=== PATIENT | male | born 1950 | race Caucasian/White ===

== ENCOUNTER 2022-10-03 05:59 | Day surgery (SDC) | payer MEDICARE, SELFPAY ==
[2022-10-03] VITALS (14 sets, daily range): BP systolic 129–186; BP diastolic 68–89; PULSE 64–71; RESP 14–18; TEMP 36.1–36.7; O2SAT 90–99; BMI 36.3
--- NOTE | 2022-10-03 06:21 | SUR.PREOP ---
Patient provided home covid negative results to RN.
[2022-10-03] MEDS: SODIUM CHLORIDE 0.9 % (FLUSH) 10 ML SYRINGE IVF (06:45)
[2022-10-03] MEDS: LACTATED RINGERS 1000 ML 1,000 ML 100 ML IV ×2 (06:45→09:00)
[2022-10-03] MEDS: fentaNYL 100 MCG/2 ML inj IVP (07:15)
[2022-10-03] MEDS: MIDAZOLAM HCL 1 MG/ML inj IVP (07:15)
--- NOTE | 2022-10-03 07:18 | SUR.PREOP ---
TIME?OUT:?0714 PT/Fabienne Bustamante RN/Dharmesh Taveras CRNA?VERIFICATION?OF?SURGICAL?SITE left shoulder,?PROCEDURE,?AND?CONSENT OBTAINED?PRIOR?TO?INVASIVE?PROCEDURE.
[2022-10-03] MEDS: CEFAZOLIN 2 GM in 0.9 % SODIUM CHLORIDE Mini-bag 100 ML IVPB (07:37)
[2022-10-03] MEDS: EPINEPHrine 1 MG in SODIUM CHLORIDE IRRIG SOLUTION 3,000 ML 9003 MG IRRIGATION ×7 (08:02→09:31)
--- NOTE | 2022-10-03 09:55 | P.ORPRC_ITS ---
Procedure Note Date of procedure: 10/03/22 Procedure: PREOPERATIVE DIAGNOSES: 1. Left shoulder rotator cuff tear-full thickness supraspinatus mid tendon tearing 2. Left shoulder AC degenerative joint disease, primary, moderate-severe 3. Left shoulder subacromial impingement syndrome. POSTOPERATIVE DIAGNOSES: 1. Left shoulder rotator cuff tear-full thickness supraspinatus mid tendon tearing 2. Left shoulder AC degenerative joint disease, primary, moderate-severe 3. Left shoulder low-grade partial-thickness long head biceps tendon tearing 4. Left shoulder anterior and superior labral degenerative tearing 5. Left shoulder chondromalacia humeral head anteriorly 6. Left shoulder subacromial impingement syndrome. NAME OF OPERATION: 1. Left shoulder arthroscopic rotator cuff repair (upper border subscapularis and full-thickness supraspinatus) 2. Left shoulder arthroscopic distal clavicle excision 3. Left shoulder arthroscopic extensive glenohumeral debridement 4. Left shoulder arthroscopic bursectomy, subacromial decompression/partial acromioplasty. SURGEON: Juan Jay MD SLP TEACHER: Aleah Carlton PA-C. Of note, a skilled distribution center assistant was critical for this case to aide in patient positioning, suture manipulation, arm positioning, instrument positioning, and closure. ANESTHESIA: General plus preoperative supraclavicular block. EBL: Less than 50 mL IMPLANTS: Arthrex 5.5 mm BioComposite corkscrew suture anchor (x1); 5.5 mm BioComposite SwiveLock suture anchor (x1) COMPLICATIONS: None evident INDICATIONS: The patient is a pleasant, 72-year-old male who has experienced left shoulder pain that has been increasing in recent time. Physical exam and imaging were consistent with a rotator cuff tear. Given their findings, as well as the weakness and pain, and inadequate response to nonoperative management, recommendation was made for surgery. FINDINGS: Exam under anesthesia revealed stable shoulder with excellent range of motion. The diagnostic arthroscopy revealed grade 3 chondromalacia anterior humeral head with some loose chondral flaps near the lesser tuberosity. The Subscapularis tendon was torn from its upper border with mild-moderate retraction. The long head of the biceps tendon was torn low-grade partial- thickness manner aunt's deep surface in the intra-articular portion. The superior rotator cuff tendon was found to be torn full-thickness through the full breadth of the supraspinatus and anterior portion of the infraspinatus. The tear was a mid substance tendon tear for the most part. It did have some avulsion from the bone anteriorly. This allowed us to place a single anchor anteromedially. The rest of it was [id number] tendon repair with marginal convergence suture. The labrum was degeneratively frayed in the anterior and superior aspects. No loose bodies were identified within the pouch or subscapularis recess. PROCEDURE: Following a thorough discussion of risks, benefits, and alternatives, consent was obtained and the left shoulder was marked. The patient was brought to the operating room and placed supine on the operating table. Induction of anesthesia was completed after preoperative supraclavicular block was administered in preop holding. Appropriate time out was performed identifying proper patient, site, and procedure. 2 g IV Ancef was administered within 1 hour of incision preoperatively. The left upper extremity was prepped and draped in the appropriate sterile fashion using ChloraPrep prep. This was after the patient was positioned in the beach chair with their head in neutral alignment and all bony prominences well padded. The shoulder was insufflated with 20mL of normal saline via an 18g spinal needle from a posterior approach. An 11 blade skin incision allowed a blunt trochar to be inserted and diagnostic arthroscopy to be performed with the findings as noted above. An anterior portal was established with an outside in technique. This allowed the probe to be inserted and confirm the diagnostic arthroscopic findings. The shaver was then inserted and allowed debridement of the anterior and superior labrum as well as the partial tearing of the long head of biceps tendon and anterior humeral chondral tissue loose flaps. Following this, the upper border subscapularis was repaired after debriding the lesser tuberosity with the shaver and [place] cautery. Subscapularis was captured in horizontal mattress fashion with a fiber tape suture. The tails were brought to a single anchor in the lesser tuberosity with excellent reapproximation of the subscap tendon and good excursion/tension. Thereafter, the subacromial space was entered. Here, a complete bursectomy and partial acromioplasty/subacromial decompression was performed with a combination of radiofrequency ablator, the shaver, and a 5.5 mm bur. Additionally, distal clavicle excision was performed with the bur. 8 mm of distal clavicle was resected based on the width of our bur. Further inspection of the supraspinatus and infraspinatus rotator cuff was performed. This identified the tear as noted above. The margins of the tear were debrided, and the greater tuberosity was debrided with a combination of the [place] cautery, shaver, and bur on reverse setting. [After gentle decortication, marginal convergence sutures allowed us to reapproximate the delaminated portion of the infraspinatus after passing it multiple times for single knot. Multiple marginal convergence sutures were passed along the posterior reverse L-shaped tear pattern. Then, a single 5.5 mm corkscrew suture anchor was placed in the anterior medial portion of the greater tuberosity. The 4 tails were passed independently and tied providing excellent tension on the rotator cuff to the anchor. The tails were then brought to a single lateral SwiveLock suture anchor with excellent reapproximation of the remaining tendon over the anterior footprint as well as adjacent to the remaining mid tendon tearing. Prior to anchor regional intermodal truck driver removal, the eyelet sutures were tugged on for each anchor and found that the anchor had excellent stability within the bone. The shoulder was placed through range of motion and found to be stable. The rotator cuff was re-probed and found to be stable. Instruments were removed. Excess fluid was drained, closure performed with 4-0 Monocryl and Steri-Strips. Dressings were applied. Sling was applied. The patient was awoken from an esthesia and transferred to the PACU in stable condition. A skilled distribution center assistant was critical for this case to aid in patient positioning, limb positioning, skill to manipulate arthroscopic instruments and camera, suture management, patient safety, and closure. PLAN: 1. Elbow, forearm, wrist and digit range of motion of operative extremity as tolerated. 2. Encouraged ice. 3. Percocet for pain as needed. 4. Sling at all times except for ROM and showering. 5. Follow up with PA visit in 1-2 weeks for wound check. Initiate physical therapy following that visit for passive range of motion. Initiate active assisted range of motion at 4-5 weeks. May do pendulums now.
--- NOTE | 2022-10-03 10:18 | W.ANESCHARGE ---
Anesthesia Charges Start Date/Time Anesthesia Start Date: 10/03/22 Anesthesia Start Time: 07:25 Stop Date/Time Anesthesia Stop Date: 10/03/22 Anesthesia Stop Time: 10:16
--- NOTE | 2022-10-03 11:40 | W.PM.NB ---
Nerve Block Nerve Block Time Seen by Provider: 07:10 Date Seen: 10/03/22 Type of block requested by surgeon for post-operative analgesia: supraclavicular Side: left Time out performed: Yes Verification of patient name: Yes Verification of date of : Yes Site marking: site marked Name of person performing procedure: Dharmesh Taveras Continuous monitoring Was continuous monitoring of O2 sat, B/P, environmental monitoring technician, recorded every 15 minutes?: Yes Procedure Checklist: sterile prep, needles and gloves Ultrasound guided. Images saved: Yes Medications given in 5ml increments after negative aspiration: Ropivicaine %: 0.5 mL: 25 Needle gauge: 21 Decadron (mg): 10 Precedex (mcg): 25 Patient tolerated procedure well: Yes Block Charges Block Charge (with Pro Fee): Brachial Plexus Use of Ultrasound Machine for Block: Yes- US Guidance/pain block
== END 2022-10-03 11:55 | disposition home or self-care (01) ==
PROVIDERS: PCP Physician Assistant Medical; Visit Provider Orthopaedic Surgery Sports Medicine
PROC: (CPT 29805; principal; 2022-10-03 07:30)
DX: M75.122 Complete rotator cuff tear or rupture of left shoulder, not specified as traumatic (principal); M75.42 Impingement syndrome of left shoulder; M19.012 Primary osteoarthritis, left shoulder; S46.112A Strain of muscle, fascia and tendon of long head of biceps, left arm, initial encounter; S43.432A Superior glenoid labrum lesion of left shoulder, initial encounter; M94.212 Chondromalacia, left shoulder; E11.9 Type 2 diabetes mellitus without complications
CPT/HCPCS: 29827; 29826; 29823; 29824; 01630; 64415; 76942; 82962; C1713; J0171; J0330; J0690; J1100; J2250; J2405; J2704; J2795; J3010; J7120; L3670

== ENCOUNTER 2024-10-28 13:45 | Outpatient (RCR) | payer MEDICARE, SELFPAY ==
--- NOTE | 2024-09-09 15:02 | PT.OPE ---
PT [facility] Start: 09/09/24 14:26 Freq: Status: Active Protocol: Document 09/09/24 14:40 DAVID (Rec: 09/09/24 14:58 DAVID [id number]) E-signed By Roge Rice, PT, ATC Physical Therapy Outpatient Evaluation Insurance Information Insurance Name [employer] Medical Diagnosis M51.36 other intervertebral disc degeneration, lumbar region Treating Diagnosis Low back pain Altered posture Mobility restrictions Imaging Report Information Xrays indicated moderate DDD Lumbar spine. Referring MD [place] Subjective Preferred Name TOMER Subjective Tomer's chief complaint is R sided lower back pain that occurs with initial standing from sitting, standing durations > 5 min.s and walking durations >5 min.s. Using a grocery cart or cane does lessen incidence. PMHx includes surgery to L4-5 8-10 years ago, occurrence of lower back pain last spring for which he had career development engineer intervention and bilateral RCR's. This onset of back pain began in March of 2024 and hasn't improved noticeably since. He acknowledges the need to walk with a forward bent trunk posture and feels this is getting worse. He takes Tylenol occasionally to combat the symptoms. No LE paresthesia reported. Pain is restricted to the R lower spine and into the upper R buttocks. Pain Comments 4/10 average Date of Last Physician Visit 09/03/24 Current Work Status Retired Precautions Therapy Limitations/Systems Review Not Limited Objective Range of Motion Trunk: Extension full, slight symptom increase at end range Flexion -50%, 4/10 R lower back soreness at end range which was 14 fingertips to floor L SB also pain producing. Strength LE 5/5 all joints and patterns bilaterally Palpation Increase muscle tone and spasm presence in the R lumbar paraspinal and proximal gluteal muscles. Posture Stands with a R lateral lean secondary to scoliosis Increase lumbar lordosis, anterior pelvic tilt. Sensation/Reflexes Normal and symmetric Other/Pertinent Objective Slump Test negative R and L SLR 70 degrees, soft tissue stretch end feel Assessment Assessment/Impression Tomer is a very pleasant 74 year old man experiencing lower back and upper gluteal symptoms secondary to degenerative changes occurring in his lumbar spine. Active and passive joint motions are limited because of the pain. Standing and walking durations have become limited requiring an assistive device or cart to complete ADL and shopping tasks. The examination found increased muscle tension and spasm in the R lumbar paraspinal and upper gluteal muscles. Hypomobile R distal lumbar and SI joint gliding present. A skilled PT program focused on joint mobilization, stretching, core stabilization and posture adjustment is recommended. His dedication to his home program was evidenced in prior attendance in PT so I don't expect this to change. Primary Functional Limitations Standing > five minutes in mormonism Walking > five minutes while shopping Sit to stand transfers. Plan of Care Rehabilitation Potential Fair Physical Therapy Goals 1.Independent symptom control and HEP performance. 2.Improve standing and walking durations to 10 and 15 min.s allowing improved ease with meetings, ADL's and shopping. 3.Increase hip flexor flexibility while improving abdominal strength to show improved standing posture with less lumbar lordosis. Coordination/Communication With Referral Source Treatment Plan/Direct Interventions Joint Mobilization,Manual Therapy,Self-Care/Home Management,Therapeutic Activities,Therapeutic Exercises,Ultrasound Frequency/Duration 1-2x per week 6-12 weeks Patient Will Be Discharged From Therapy Independent w/HEP, Independently Progressing Evaluation Billing Untimed Code Treatment Minutes 30 PT Eval No Charge No Complexity Low Certification Information Initial Certification Date 09/09/24 Ending Certification Date 12/07/24 Provider Signature Required Yes Provider Signature Shows Agreement With POC & Medical Necessity Physician NPI Number Write NPI# Here Physician Comment/Change : Physician Signature & Date Requested Please Sign/Date Here
== END 2024-10-28 14:42 | disposition home or self-care (01) ==
PROVIDERS: PCP Physician Assistant Medical; Visit Provider Orthopaedic Surgery Sports Medicine
DX: M51.86 Other intervertebral disc disorders, lumbar region (principal); M54.50 Low back pain, unspecified; R29.3 Abnormal posture; Z51.89 Encounter for other specified aftercare
CPT/HCPCS: 97110; 97140; 97161